=== PATIENT | female | born 1970 | race Caucasian/White ===

== ENCOUNTER 2022-04-01 13:53 | Inpatient (IN) | payer OTHER, MEDICAID ==
[~2022-04-01] VITALS: Ht 162.6 cm; Wt 110.7 kg
[~2022-04-01 13:53] MED LIST: ABILIFY; BUSPAR; INSULIN 70/30; WELBUTRIN
[2022-04-01 14:00] VITALS: BP_SYST 139
--- NOTE | 2022-04-01 14:30 | NUR ---
Patient is a 52-year-old female with a history of DIABETES (NovoLog and Lantus) who presents to the ED for 2-week history of hyperglycemia. Patient reports that glucose monitor at home reads high. Patient states that she had a recent change of doctor and her next appointment is 5 days from now so she requires a medication refill because they ran out 2 weeks ago. Patient has associated nausea, dry mouth, dysuria, and urinary frequency. Denies abdominal pain, chest pain, dyspnea, fever, flulike symptoms. Patient has a prior history of DKA.
--- NOTE | 2022-04-01 14:35 | NUR ---
ER at bedside examining patient.
--- NOTE | 2022-04-01 14:43 | NUR ---
Blood and urine sent off to lab at this time.
[2022-04-01 15:16] LABS: BASOPHILS % (AUTO) 0.5 % (0.0-2.0); EOSINOPHILS # (AUTO) 0.1 K/uL (0.0-0.4); EOSINOPHILS % (AUTO) 1.6 % (0.0-4.0); HEMATOCRIT 43.7 % (36-48); HEMOGLOBIN 14.3 g/dL (12.0-16.0); LYMPHOCYTES # (AUTO) 1.8 K/uL (1.0-5.5); LYMPHOCYTES % (AUTO) 24.2 % (20.5-51.5); MEAN CORPUSCULAR HEMOGLOBIN 28 pg (27-31); MEAN CORPUSCULAR HGB CONC 33 % (32-36); MEAN CORPUSCULAR VOLUME 84 fL (79.0-98.0); MONOCYTES # (AUTO) 0.4 K/uL (0.0-1.0); MONOCYTES % (AUTO) 5.7 % (1.7-9.3); NEUTROPHILS # (AUTO) 4.9 K/uL (1.8-7.7); PLATELET COUNT (AUTO) 189 K/uL (130-430); RED CELL DISTRIBUTION WIDTH 13.6 % (9.0-15.0); WHITE BLOOD COUNT (AUTO) 7.3 K/uL (4.8-10.8)
[2022-04-01 15:27] LABS: CALCIUM 9.2 mg/dL (8.4-11.0); CREATININE 1.36 mg/dL (0.55-1.30)
[2022-04-01 15:28] LABS: ALBUMIN 3.9 g/dL (3.4-4.8); TOTAL BILIRUBIN 0.3 mg/dL (0.0-1.0)
[2022-04-01] MEDS ORDERED: NACL 0.9% 2,000 ML IV ONE (15:45)
[2022-04-01] MEDS ORDERED: ONDANSETRON HCL 4 MG/2 ML VIAL IVP ONE (15:45)
[2022-04-01] MEDS ORDERED: KCL 20 mEq in 100 mL (PREMIX) 100 ML IV ONE (16:45)
[2022-04-01] MEDS ORDERED: INSULIN REGULAR, HUMAN 100 UNITS in NS 99 ML IV PRN ×2 (16:45)
[2022-04-01 17:04] LABS: BILIRUBIN,URINE NEGATIVE (NEGATIVE); BLOOD, URINE NEGATIVE (NEGATIVE); CLARITY/URINE CLEAR (CLEAR); COLOR,URINE YELLOW (YELLOW); GLUCOSE,URINE 3+ (NEGATIVE); KETONES,URINE 1+ (NEGATIVE); LEUKOCYTE ESTERASE ,URINE NEGATIVE (NEGATIVE); NITRITE, URINE NEGATIVE (NEGATIVE); PROTEIN URINE NEGATIVE (NEGATIVE); UROBILINOGEN,URINE 0.2 (0.2-1.0)
[2022-04-01 17:11] LABS: BACTERIA,URINE None Seen /HPF (None Seen); MUCUS,URINE None Seen /LPF (None Seen); RBC,URINE 0-3 /HPF (0-3); WBC,URINE 0-3 /HPF (0-3)
--- NOTE | 2022-04-01 18:34 | NUR ---
COVID SWAB OBTAINED AND SENT TO LAB.
[2022-04-01] MEDS ORDERED: INSULIN LISPRO SLIDING SCALE 100 UNITS/ML, 3 ML VIAL (humaLOG) SUBCUT PRN (19:00)
[2022-04-01] MEDS ORDERED: ONDANSETRON HCL 4 MG/2 ML VIAL IVP PRN (19:00)
[2022-04-01] MEDS ORDERED: NACL 0.9% 1,000 ML IV SCH (19:00)
[2022-04-01] MEDS ORDERED: ACETAMINOPHEN 325 MG TABLET PO PRN ×2 (19:00→20:00)
[2022-04-01] MEDS ORDERED: MORPHINE 2 MG/ML INJ. SYRINGE IVP PRN ×2 (19:00)
[2022-04-01] MEDS ORDERED: DEXTROSE 50% JECT 50 ML DISP.SYRIN IVP PRN (19:00)
[2022-04-01] MEDS ORDERED: ZOLPIDEM TARTRATE 5 MG TABLET PO PRN (19:00)
[2022-04-01] MEDS ORDERED: DOCUSATE SODIUM 100 MG CAPSULE PO PRN (19:00)
[2022-04-01] MEDS ORDERED: MUPIROCIN 2% TOPICAL OINTMENT 22 GM NS PRN (19:00)
[2022-04-01] MEDS ORDERED: LORazepam 2 MG/ML VIAL IVP PRN (19:00)
[2022-04-01] MEDS ORDERED: POTASSIUM CHLORIDE 20 MEQ TAB.PRT.SR PO PRN (19:00)
[2022-04-01] MEDS ORDERED: MAGNESIUM SULFATE 50 ML IV PRN (19:00)
[2022-04-01 19:48] LABS: CALCIUM 8.5 mg/dL (8.4-11.0); CREATININE 1.04 mg/dL (0.55-1.30)
[2022-04-01 20:47] VITALS: BP_SYST 133
--- NOTE | 2022-04-01 20:49 | NUR ---
PATIENT PLACED INTO ROOM #6, WITH FAMILY AT BEDSIDE, CARE ASSUMED AT 1930, UPDATED ON PLAN OF CARE AT THIS TIME. NO S/S OF ANY DISTRESS NOTED, PATIENT A/OX4, RESPIRATIONS EVEN NON LABORED, ABD OBESE WITH POSITIVE BOWEL-SOUNDS,WILL CONTINUE TO MONITOR.
--- NOTE | 2022-04-01 20:53 | NUR ---
INFORMED THAT PATIENT LEFT AMA.
[2022-04-01] MEDS ORDERED: HEPARIN SODIUM,PORCINE 5,000 UNITS/ML VIAL SUBCUT SCH (21:00)
== END 2022-04-01 20:53 | disposition left against medical advice (07) | DRG 637 ==
LOC: SED 13:53 → MERGE 18:56 → SIC 18:56
PROVIDERS: ADMIT General Practice; ATTEND General Practice
DX: E10.65 Type 1 diabetes mellitus with hyperglycemia (principal); N17.0 Acute kidney failure with tubular necrosis; Z68.41 Body mass index [BMI] 40.0-44.9, adult; E66.01 Morbid (severe) obesity due to excess calories; F12.90 Cannabis use, unspecified, uncomplicated; Z20.822 Contact with and (suspected) exposure to COVID-19; Z53.29 Procedure and treatment not carried out because of patient's decision for other reasons; Z91.199 Patient's noncompliance with other medical treatment and regimen due to unspecified reason; Z79.4 Long term (current) use of insulin; Z87.891 Personal history of nicotine dependence; Z91.14 Patient's other noncompliance with medication regimen
CPT/HCPCS: 36415; 36600; 71045; 80048; 80053; 81000; 82803-TC; 82962; 83036; 84484; 85025; 93005; 96361; 96372; 96374; 99291; 99292; J2405; J3480; J7030